=== PATIENT | female | born 1965 | race Caucasian/White ===

== ENCOUNTER → 2024-11-24 | Day surgery (SDC) | payer BC, OTHER ==
[2024-11-20 15:21] LABS: BASOPHILS # (AUTO) 0.1 (0.0-0.1); BASOPHILS % 0.7 % (0.0-1.0); EOSINOPHILS # (AUTO) 0.1 (0.0-0.4); HEMATOCRIT 38.7 % (34.2-44.1); HEMOGLOBIN 12.3 g/dL (12.0-16.0); LYMPHOCYTES # (AUTO) 1.7 (1.0-3.2); LYMPHOCYTES % 20.6 % (18.0-39.1); MEAN CORPUSCULAR HGB CONC 31.8 g/dL (31-35); MEAN CORPUSCULAR VOLUME 103.8 fL (81-99); MONOCYTES # (AUTO) 0.7 (0.2-0.8); MONOCYTES % 8.4 % (4.4-11.3); NEUTROPHILS # (AUTO) 5.7 (2.1-6.9); NEUTROPHILS % 68.9 % (38.7-80.0); PLATELET COUNT 181 x10e3/uL (140-360); RED BLOOD COUNT 3.73 x10e6/uL (3.6-5.1); RED CELL DISTRIBUTION WIDTH 14.1 % (11.7-14.4); WHITE BLOOD COUNT 8.24 x10e3/uL (4.8-10.8)
[~2024-11-24] MED LIST: ASPIRIN81 MG PO; ATIVAN1 MG PO; ATORVASTATIN CA40 MG PO; CLOPIDOGREL75 MG PO; COQ-10100 MG PO; FAMOTIDINE20 MG PO; FISH OIL 1,2001 EACH PO; FOLIC ACID0.8 MG PO; LIDOCAINE HCL 2% LOCAL INJ 5 ML SDV VIAL INJ ONE; LOSARTAN POTASS25 MG PO; MAG GLYCINATE100 MG PO; NAPROXEN250 MG PO; ONDANSETRON ODT8 MG PO; PROPOFOL IV EMULSION 10 MG/ML 20 ML VIAL ONE; PROPOFOL IV EMULSION 50 ML IV ONE; ROPINIROLE HCL4 M1 PO; SERTRALINE HCL50 MG PO; TIZANIDINE HCL6 MG PO; TOPIRAMATE100 MG PO; TYLENOL ARTHRITIS PO; ULTRAM 50MG50 MG PO; VITAMIN B150 MG PO; ZYRTEC10 M3 PO
[2024-11-24] MEDS: LACTATED RINGER'S 1,000 ML ONE (07:06)
[2024-11-24 09:54] VITALS: TEMP 97
[2024-11-24 10:15] VITALS: BP 138/84; PULSE 88; RESP 18; O2SAT 98
== END | disposition home or self-care (01) ==
LOC: OR 06:23
PROVIDERS: ATTEND Internal Medicine Gastroenterology
DX: K21.9 Gastro-esophageal reflux disease without esophagitis (principal); D12.4 Benign neoplasm of descending colon; D12.5 Benign neoplasm of sigmoid colon; K29.50 Unspecified chronic gastritis without bleeding; K29.80 Duodenitis without bleeding; K26.9 Duodenal ulcer, unspecified as acute or chronic, without hemorrhage or perforation; R09.A2 Foreign body sensation, throat; K31.89 Other diseases of stomach and duodenum; K20.90 Esophagitis, unspecified without bleeding; R19.5 Other fecal abnormalities; K44.9 Diaphragmatic hernia without obstruction or gangrene; K57.30 Diverticulosis of large intestine without perforation or abscess without bleeding; K64.8 Other hemorrhoids; Z01.810 Encounter for preprocedural cardiovascular examination; Z01.812 Encounter for preprocedural laboratory examination; Z79.02 Long term (current) use of antithrombotics/antiplatelets; Z79.82 Long term (current) use of aspirin; Z79.1 Long term (current) use of non-steroidal anti-inflammatories (NSAID); Z79.899 Other long term (current) drug therapy
CPT/HCPCS: 36415; 43239; 45384; 45385; 85025; 93005; J2003; J2704 ×2; J7121; 45378